=== PATIENT | female | born 1955 | race Caucasian/White ===

== ENCOUNTER 2024-02-15 12:26 | Emergency (ER) | payer OTHER ==
[2024-02-15 12:41] VITALS: BP 139/84; PULSE 91; RESP 18; TEMP 97.6; BMI 19.3
[2024-02-15 14:09] LABS: VENOUS O2 SATURATION 33.2 % (70-80); VENOUS PCO2 44.1 mmHg (38-52); VENOUS PH 7.318 (7.310-7.410)
[2024-02-15 14:15] LABS: BASO % 0.3 % (0-2.0); EOS % 1.8 % (0-4.5); HEMATOCRIT 47.8 % (32.4-45.2); MCHC 29.3 g/dl (32.0-36.0); MEAN CELL VOLUME 59.3 fl (80-96); MEAN PLT VOLUME 8.2 fl (7.5-11.1); MONO % 2.5 % (3.8-10.2); NEUT % 86.4 % (42.8-82.8); PLATELET COUNT 357 10^3/uL (134-434); RDW 22.6 % (11.6-15.6); WHITE BLOOD COUNT 18.1 K/mm3 (4.0-10.0)
[2024-02-15 14:18] LABS: MCH 17.4 pg (25.7-33.7); RBC 8.06 M/mm3 (3.60-5.2)
[2024-02-15 14:41] LABS: POTASSIUM 5.6 mmol/L (3.5-5.1)
[2024-02-15 14:43] LABS: ALBUMIN 4.3 g/dl (3.4-5.0); CALCIUM 9.6 mg/dL (8.5-10.1)
[2024-02-15 14:44] LABS: BLOOD UREA NITROGEN 20.8 mg/dL (7-18)
[2024-02-15 14:47] LABS: ANISOCYTOSIS 3+; CREATININE 0.9 mg/dL (0.55-1.3); MACROCYTOSIS 0
[2024-02-15 14:48] LABS: BILIRUBIN,TOTAL 0.8 mg/dL (0.2-1)
[2024-02-15] MEDS ORDERED: SODIUM ZIRCONIUM CYCLOSILICATE (LOKELMA) 10 GM PACKET ONE (15:18)
[2024-02-15] MEDS: SODIUM ZIRCONIUM CYCLOSILICATE (LOKELMA) 5 GM PACKET PO ONE (15:26)
[2024-02-15] MEDS: LACTATED RINGERS SOLUTION 1000 ML INFUS.BAG IV ONE (15:27)
== END 2024-02-15 15:26 | disposition home or self-care (01) ==
LOC: JER 12:26
DX: E87.5 Hyperkalemia (principal); E11.65 Type 2 diabetes mellitus with hyperglycemia
CPT/HCPCS: 36415; 80053; 82803; 82962; 85025; 93005; 93010; 99284-25